=== PATIENT | female | born 1995 | race Caucasian/White ===

== ENCOUNTER 2017-01-04 19:03 | Emergency (ER) | payer BC, OTHER ==
[~2017-01-04] VITALS: Ht 162.6 cm; Wt 58.9 kg
[~2017-01-04 19:03] MED LIST: Z.0.NO CURRENT MEDS
[2017-01-04 19:05] VITALS: BP 151/105; PULSE 112; RESP 18; TEMP 98.3; O2SAT 99
[2017-01-04] MEDS ORDERED: MEDI220T PO (19:20)
[2017-01-04 19:24] VITALS: BP 154/98; PULSE 102; RESP 18; O2SAT 99
[2017-01-04] MEDS ORDERED: SODIUM CHLOR 0.9% 1000 ML INJ 1,000 ML IV SCH (19:36)
--- NOTE | 2017-01-04 19:36 | PD ---
HPI Chief Complaint: Abdominal Pain Time Seen by Provider: 19:33 Travel History International Travel<30 days: No Contact w/Intl Traveler<30days: No Traveled to known affect area: No History of Present Illness HPI 21 year-old female presents to the emergency department with central abdominal pain since yesterday morning noted upon awakening. No fever or mild chills also notes some left earache times one week no sinus pressure drainage sore throat neck pain cough congestion shortness of breath generalized abdominal pain flank pain dysuria frequency urgency nausea vomiting or diarrhea. Patient states she is currently menstruating. Patient denies . Patient is sexually active and uses no contraception. Patient denies any dietary indiscretion well water ingestion or foreign travel. Patient denies any injury or fall. Patient took 2 doses of generic Aleve yesterday and one dose today without symptomatically relief. The patient rates her pain 5/10 in intensity. Patient denies any chronic medical conditions or GI issues. PFSH Past Medical History Narrative Medical Negative past history negative surgical history; no tobacco use; nursing notes reviewed Diabetes: No Immunizations Current: Yes ?: Not Social History Alcohol Use: No Tobacco Use: No Allergies-Medications (Allergen,Severity, Reaction): Coded Allergies: No Known Allergies (Verified , 01/04/17) Reported Meds & Prescriptions Reported Meds & Active Scripts Active Reported Naproxen Sodium 220 Mg Tab 220 Mg PO BID PRN No Current Meds (Miscellaneous Medication) Misc Review of Systems Except as stated in HPI: all other systems reviewed are Neg General / Constitutional: Positive: Chills, No: Fever HENT: Positive: Earache, No: Sore Throat, Congestion Cardiovascular: No: Chest Pain or Discomfort Respiratory: No: Cough, Shortness of Breath Gastrointestinal: Positive: Abdominal Pain, Loss of Appetite, No: Nausea, Vomiting, Diarrhea Genitourinary: No: Urgency, Frequency, Dysuria, Pelvic Pain Musculoskeletal: No: Myalgias, Arthralgias Skin: No Rash Neurologic: No: Weakness, Dizziness, Syncope Psychiatric: No: Anxiety Hematologic/Lymphatic: No: Lymph Node Enlargement Physical Exam Narrative GENERAL: Well-developed well-nourished female in no acute distress no respiratory distress SKIN: Warm and dry. HEAD: Normocephalic. EYES: No scleral icterus. No injection or drainage. ENT: Mucous members moist airway is patent no posterior pharyngeal erythema edema or exudative change; bilateral tympanic membranes no redness no dullness no loss of landmarks no perforation. NECK: Supple, trachea midline. No JVD or lymphadenopathy. No meningismus no nuchal rigidity. CARDIOVASCULAR: Regular rate and rhythm without murmurs, gallops, or rubs. RESPIRATORY: Breath sounds equal bilaterally. No accessory muscle use. GASTROINTESTINAL: Abdomen soft, non-tender, nondistended. No focal tenderness guarding or rebound. Pelvic exam: Normal external exam no redness induration or lesions; speculum exam scant white mucous no discharge no blood no clots no tissue cervical os is closed; bimanual exam no adnexal mass or tenderness no uterine enlargement no cervical motion tenderness. MUSCULOSKELETAL: No cyanosis, or edema. BACK: Nontender without obvious deformity. No CVA tenderness. Data Data Last Documented VS Vital Signs Date Time Temp Pulse Resp B/P Pulse Ox O2 Delivery O2 Flow Rate FiO2 01/04/17 23:25 98.1 88 16 123/79 99 Room Air Orders Complete Blood Count With Diff (01/04/17 19:36) Comprehensive Metabolic Panel (01/04/17 19:36) Lipase (01/04/17 19:36) Urinalysis - C+S If Indicated (01/04/17 19:36) Iv Access Insert/Monitor (01/04/17 19:36) Ecg Monitoring (01/04/17 19:36) Oximetry (01/04/17 19:36) Sodium Chlor 0.9% 1000 Ml Inj (Ns 1000 M (01/04/17 19:36) Sodium Chloride 0.9% Flush (Ns Flush) (01/04/17 19:45) Ed Urine Pregnancytest Poc (01/04/17 19:36) Ondansetron Inj (Zofran Inj) (01/04/17 20:15) Morphine Inj (Morphine Inj) (01/04/17 20:15) Ct Abd/Pel W Iv Contrast(Rout) (01/04/17 ) Oral Contrast - Adult (01/04/17 21:59) Diatrizoate Liq ( Gastroview Liq) (01/04/17 22:05) Ondansetron Inj (Zofran Inj) (01/04/17 22:45) Iohexol 350 Inj (Omnipaque 350 Inj) (01/04/17 23:15) Gc And Chlamydia Pcr (01/04/17 23:33) Ketorolac Inj (Toradol Inj) (01/04/17 23:45) Sodium Chlorid 0.9% 500 Ml Inj (Ns 500 M (01/04/17 23:45) Labs Laboratory Tests Test 01/04/17 19:52 White Blood Count 8.0 TH/MM3 Red Blood Count 5.22 MIL/MM3 Hemoglobin 16.0 GM/DL Hematocrit 47.5 % Mean Corpuscular Volume 90.9 FL Mean Corpuscular Hemoglobin 30.6 PG Mean Corpuscular Hemoglobin 33.7 % Concent Red Cell Distribution Width 12.4 % Platelet Count 349 TH/MM3 Mean Platelet Volume 7.5 FL Neutrophils (%) (Auto) 80.8 % Lymphocytes (%) (Auto) 14.2 % Monocytes (%) (Auto) 4.6 % Eosinophils (%) (Auto) 0.2 % Basophils (%) (Auto) 0.2 % Neutrophils # (Auto) 6.5 TH/MM3 Lymphocytes # (Auto) 1.1 TH/MM3 Monocytes # (Auto) 0.4 TH/MM3 Eosinophils # (Auto) 0.0 TH/MM3 Basophils # (Auto) 0.0 TH/MM3 CBC Comment DIFF FINAL Differential Comment Urine Color YELLOW Urine Turbidity CLOUDY Urine pH 8.0 Urine Specific [place] 1.015 Urine Protein NEG mg/dL Urine Glucose (UA) NEG mg/dL Urine Ketones NEG mg/dL Urine Occult Blood NEG Urine Nitrite NEG Urine Bilirubin NEG Urine Leukocyte Esterase NEG Urine WBC 0-2 /hpf Urine Squamous Epithelial 0-5 /hpf Cells Urine Amorphous Sediment FEW Urine Mucus FEW /lpf Microscopic Urinalysis Comment CULT NOT INDICATED Sodium Level 140 MEQ/L Potassium Level 3.5 MEQ/L Chloride Level 104 MEQ/L Carbon Dioxide Level 29.3 MEQ/L Anion Gap 7 MEQ/L Blood Urea Nitrogen 9 MG/DL Creatinine 0.74 MG/DL Estimat Glomerular Filtration 101 ML/MIN Rate Random Glucose 95 MG/DL Calcium Level 9.0 MG/DL Total Bilirubin 0.3 MG/DL Aspartate Amino Transf 15 U/L (AST/SGOT) Alanine Aminotransferase 24 U/L (ALT/SGPT) Alkaline Phosphatase 109 U/L Total Protein 8.7 GM/DL Albumin 4.4 GM/DL Lipase 128 U/L [facility] Medical Decision Making Medical Screen Exam Complete: Yes Emergency Medical Condition: Yes Medical Record Reviewed: Yes Interpretation(s) CBC & BMP Diagram 01/04/17 19:52 CT abd/pel: CONCLUSION: No acute CT findings in the abdomen or pelvis. Raymond Pratt MD on January 04, 2017 at 23:22 Board Certified Radiologist. This report was verified electronically. UA: cloudy o/w wnl poc hcg: negative Differential Diagnosis Viral syndrome, gastritis, peptic ulcer disease, pancreatitis, atypical biliary colic, colitis, appendicitis, ectopic , UTI Narrative Course IV access obtained specimen collected and sent for resulting patient kept nothing by mouth and given bolus of normal saline Patient complain of ongoing pain administered Zofran 4 mg IV and morphine sulfate 3 mg IV At 2100 patient denies any pain 9:24 PM lab values resulted total white cell count is normal with mild left shift 80% by automated differential normal chemistries [id number] hCG is negative; patient reexamined and reports pain on exam right lower quadrant and suprapubic; pain has continued to worsen over the past 24 hours with anorexia -- will proceed with CT At 11:[address] abdomen and pelvis is read as no acute intra-abdominal or pelvic abnormality per reading radiologist; total white cell count is normal; chemistries within normal limits; urinalysis normal; [id number] hCG negative ; patient with mild diffuse tenderness primarily lower abdomen and on pelvic exam nontender no cervical motion tenderness no discharge no blood tissue and os is closed no uterine or adnexal enlargement. Patient this time found to have vital signs and normal range. On reexamination abdomen is soft nontender; tolerates oral hydration. Stable for outpatient management. Diagnosis Primary Impression: Abdominal pain Qualified Code: R10.30 - Lower abdominal pain Referrals: Primary Care Physician call for appointment Patient Instructions: General Instructions, Narcotic given in the ED Departure Forms: Tests/Procedures, Work Release Special Instructions: no work x 1 day Additional Instructions: Follow clear liquid diet for next 12-24 hours advance as tolerated to bland/ Gautam diet and regular diet Increase fluid hydration Takes Zofran as prescribed as needed May take as tolerated ibuprofen 600 mg as often as every 6 hours for pain associated with inflammation or for fever 100.4F or greater May take acetaminophen/Tylenol every 4-6 hours as needed for fever 100.4F or greater No work times one day Return to the emergency department for any concerns or change in condition Med/Other Pt SpecificInfo: Prescription(s) given Scripts Ondansetron Odt (Zofran Odt)4 Mg Tab4 Mg SL Q6HR PRN (Nausea/Vomiting) #10 TAB Ref 0 Prov:Jen Camacho MD 01/04/17 Disposition: 01 DISCHARGE HOME Condition: Stable Jen Camacho MD Jan 04, 2017 19:36
[2017-01-04] MEDS ORDERED: SODIUM CHLORIDE 0.9% FLUSH 10 ML FLUSH IV FLUSH PRN (19:45)
[2017-01-04 20:03] LABS: AUTOMATED NEUTROPHIL # 6.5 TH/MM3 (1.8-7.7); BASOPHIL % 0.2 % (0.0-2.0); BLOOD, URINE NEG (NEG); EOSINOPHIL % 0.2 % (0.0-4.0); GLUCOSE,URINE NEG (NEG); HEMATOCRIT 47.5 % (35.0-46.0); KETONE, URINE NEG (NEG); LYMPH % 14.2 % (9.0-44.0); LYMPHOCYTE # 1.1 TH/MM3 (1.0-4.8); MEAN CELL VOLUME 90.9 FL (80.0-100.0); MEAN CORPUSCULAR HEMOGLOBIN 30.6 PG (27.0-34.0); MEAN CORPUSCULAR HGB CONC 33.7 % (32.0-36.0); MONO % 4.6 % (0.0-8.0); NEUT % 80.8 % (16.0-70.0); NITRITE,URINE NEG (NEG); PLATELET COUNT 349 TH/MM3 (150-450); RED BLOOD COUNT 5.22 MIL/MM3 (4.00-5.30); RED CELL DISTRIBUTION WIDTH 12.4 % (11.6-17.2)
[2017-01-04 20:10] LABS: CHLORIDE 104 MEQ/L (98-107); POTASSIUM 3.5 MEQ/L (3.5-5.1); SODIUM (NA) 140 MEQ/L (136-145)
[2017-01-04 20:14] LABS: ANION GAP 7 MEQ/L (5-15); BICARBONATE 29.3 MEQ/L (21.0-32.0); BLOOD UREA NITROGEN 9 MG/DL (7-18)
[2017-01-04] MEDS ORDERED: MORPHINE SULFATE 4 MG/ML INJ IV PUSH ONE (20:15)
[2017-01-04] MEDS ORDERED: ONDANSETRON HCL 4 MG/2 ML VIAL IV PUSH ONE ×2 (20:15→22:45)
[2017-01-04 20:17] LABS: ALT (GPT) 24 U/L (9-42); AST (GOT) 15 U/L (16-38); GLOMERULAR FILTRATION RATE 101 ML/MIN (>89)
[2017-01-04 20:18] LABS: TOTAL BILIRUBIN ADULT 0.3 MG/DL (0.2-1.0)
[2017-01-04 20:19] LABS: ALKALINE PHOSPHATASE 109 U/L (45-117); MUCUS URINE FEW /lpf (OCC); SQUAMOUS EPITHELIAL CELL URINE 0-5 /hpf (0-5); URINE COLOR YELLOW (YELLW/STRAW); WBC, URINE 0-2 /hpf (0-5)
[2017-01-04 20:20] VITALS: BP 134/84; PULSE 94; RESP 16; TEMP 98.5; O2SAT 98
[2017-01-04 20:20] LABS: COMMENT (UR) CULT NOT INDICATED; CULTURE IF INDICATED CULT NOT INDICATED
[2017-01-04 20:38] LABS: HEMO FLAGS DIFF FINAL
[2017-01-04 21:20] VITALS: BP 149/80; PULSE 108; RESP 18; O2SAT 97
[2017-01-04] MEDS ORDERED: DIATRIZOATE MEGLUM/DIATRIZOATE SOD 9 ML CUP ONE (22:05)
[2017-01-04 22:40] VITALS: BP 137/90; PULSE 86; RESP 17; O2SAT 98
[2017-01-04] MEDS ORDERED: IOHEXOL 350 MG/ML 10 ML VIAL (for RAD DIAG) IV ONE (23:15)
[2017-01-04 23:25] VITALS: BP 123/79; PULSE 88; RESP 16; TEMP 98.1; O2SAT 99
--- NOTE | 2017-01-04 23:28 | RADRPT ---
EXAM DATE/TIME: 01/04/2017 23:04 [facility] COMPARISON: No previous studies available for comparison. INDICATIONS : Periumbilical pain. IV CONTRAST: 80 cc Omnipaque 350 (iohexol) IV ORAL CONTRAST: Prescribed oral contrast ingested. RADIATION DOSE: 5.66 CTDIvol (mGy) MEDICAL HISTORY : None SURGICAL HISTORY : None. ENCOUNTER: Initial ACUITY: 1 day PAIN SCALE: 5/10 LOCATION: Umbilical TECHNIQUE: Volumetric scanning of the abdomen and pelvis was performed. Using automated exposure control and ad justment of the mA and/or kV according to patient size, radiation dose was kept as low as reasonably achievable to obtain optimal diagnostic quality images. DICOM format image data is available electro nically for review and comparison. FINDINGS: LOWER LUNGS: The visualized lower lungs are clear. LIVER: There is mild focal steatosis adjacent to the falciform ligament. No suspicious mass or biliary ducta l dilatation. Gallbladder is mildly distended, focally unremarkable. SPLEEN: Normal size without lesion. PANCREAS: Within normal limits. KIDNEYS: Normal in size and shape. There is no mass, stone or hydronephrosis. ADRENAL GLANDS: Within normal limits. VASCULAR: There is no aortic aneurysm. BOWEL/MESENTERY: The stomach, small bowel, and colon demonstrate no acute abnormality. There is no free intraperitone al air or fluid. I do not see an abnormal appendix. ABDOMINAL WALL: Within normal limits. RETROPERITONEUM: There is no lymphadenopathy. BLADDER: No wall thickening or mass. REPRODUCTIVE: Within normal limits. INGUINAL: There is no lymphadenopathy or hernia. MUSCULOSKELETAL: Within normal limits for patient age. CONCLUSION: No acute CT findings in the abdomen or pelvis. Raymond Pratt MD on January 04, 2017 at 23:22 Board Certified Radiologist. This report was verified electronically.
[2017-01-04] MEDS ORDERED: ZOFR4TAB3 SL (23:38)
[2017-01-04] MEDS ORDERED: KETOROLAC TROMETHAMINE 30 MG/ML (IVP) VIAL IV PUSH ONE (23:45)
[2017-01-04] MEDS ORDERED: SODIUM CHLORID 0.9% 500 ML INJ 500 ML IV ONE (23:45)
[2017-01-05 03:16] LABS: CHLAMYDIA PCR NOT DETECTED (NOT DETECT); NEISSERIA PCR NOT DETECTED (NOT DETECT)
== END 2017-01-05 00:17 | disposition home or self-care (01) ==
LOC: PHED 19:03
DX: R10.30 Lower abdominal pain, unspecified (principal)
CPT/HCPCS: 74177; 80053; 81001; 83690; 84703; 85025; 87491; 87591; 96361; 96374; 96375; 96376; 99285; J1885; J2270; J2405; J7030; J7040; Q9963; Q9967